=== PATIENT | male | born 1955 | race Hispanic/Latino ===

== ENCOUNTER 2017-09-17 07:35 | Day surgery (SDC) | payer OTHER ==
[2017-09-17] MEDS ORDERED: ECOTRIN PO ONE (07:51)
[2017-09-17] MEDS ORDERED: NACL 0.9% 500 ML 500 ML IV SCH (08:00)
[2017-09-17 08:19] LABS: Basophils % (Auto) 0.5 % (0.0-1.8); Eosinophils # (Auto) 0.5 K/mm3 (0.0-0.4); Eosinophils % (Auto) 7.5 % (0.0-4.3); Hematocrit 43.5 % (35.5-45.6); Hemoglobin 14.9 gm/dl (11.8-15.2); Lymphocytes # (Auto) 1.8 K/mm3 (1.2-5.4); Lymphocytes % (Auto) 24.8 % (13.4-35.0); Mean Corpuscular HGB Conc 34 % (32-34); Mean Corpuscular Hemoglobin 31 pg (28-32); Mean Corpuscular Volume 91 fl (84-94); Monocytes # (Auto) 0.5 K/mm3 (0.0-0.8); Monocytes % (Auto) 7.6 % (0.0-7.3); Platelet Count 299 K/mm3 (140-440); Red Blood Count 4.81 M/mm3 (3.65-5.03); Red Cell Distribution Width 13.8 % (13.2-15.2)
[2017-09-17 08:29] LABS: INR 0.87 (0.87-1.13)
[2017-09-17 09:07] LABS: BUN/Creatinine Ratio 22; Blood Urea Nitrogen 20 mg/dL (9-20); Calcium 9.1 mg/dL (8.4-10.2); Hemolysis Index 13
[2017-09-17] MEDS ORDERED: HEPARIN/NS 5000 UNIT/500ML(CATH LAB) 0 ML IR ONE (09:42)
[2017-09-17] MEDS ORDERED: HEPARIN 10,000 UNITS/10 ML ONE (09:42)
[2017-09-17] MEDS ORDERED: XYLOCAINE 2% INFILTRATI ONE (09:42)
[2017-09-17] MEDS ORDERED: NITROGLYCERIN SYRINGE 3 ML ONE (11:13)
[2017-09-17] MEDS ORDERED: HEPARIN/NS 5000 UNIT/500ML(CATH LAB) 1,000 ML IR ONE (11:13)
[2017-09-17] MEDS ORDERED: SUBLIMAZE ONE (11:14)
[2017-09-17] MEDS: VERSED ONE ×2 (11:29→11:34)
[2017-09-17] MEDS: HEPARIN 10,000 UNITS/10 ML ONE ×3 (11:32→11:36)
[2017-09-17] MEDS: XYLOCAINE 2% INFILTRATI ONE ×2 (11:32→11:33)
[2017-09-17] MEDS: CALAN ONE ×3 (11:32→11:36)
--- NOTE | 2017-09-17 14:17 | Discharge Summary ---
Short Stay Discharge Plan Activity: advance as tolerated Weight Bearing Status: Full Weight Bearing Diet: low fat, low cholesterol, low salt Follow up with: ALYSSA LORD MD [Primary Care Provider] - 7 Days JARETT ROBLERO MD [Staff Physician] - 7 Days Forms: CardCath PCI D/C Instructions
[2017-09-17 14:23] VITALS: BP 107/74
--- NOTE | 2017-09-18 13:12 | Cardiac Catherization Report ---
HISTORY: The patient is a 62-year-old male with a history of coronary artery disease who has had some chest discomfort recently and underwent a stress thallium study that was abnormal. PROCEDURE: Left heart catheterization, ventriculography, and coronary angiography via the right radial artery using 5-Bengali Sara catheters and a pigtail catheter. COMPLICATIONS: None. ESTIMATED BLOOD LOSS: 10-20 mL. SEDATION: Intravenous Versed and fentanyl. TISSUE SAMPLES: None. PREPROCEDURE DIAGNOSIS: Angina. POSTPROCEDURE DIAGNOSIS: Angina. HEMODYNAMICS: Central aortic pressure 122/85, left ventricular pressure 123/13 with an end-diastolic pressure of 27. The sedation initiation time was 11:29 a.m. The procedure started at 11:33 a.m. The procedure ended at 11:52 a.m. Total sedation time 23 minutes. ANGIOGRAPHIC RESULTS: 1. Left ventricle: Left ventriculogram reveals left ventricular enlargement with dilatation and hypokinesia of the inferior and inferobasal segments. An estimation of ejection fraction is 40-45%. 2. Right coronary artery: This is a nondominant vessel that is diffusely irregular. There are no severe lesions. 3. Left coronary artery: This vessel is diffusely irregular. The left main is free of remarkable disease. The circumflex contains a 50% lesion in the PDA branch, in its proximal portion. The ramus intermedius branch has an ostial 40% stenosis. The LAD contains a mid 40% stenosis and an early distal 40% stenosis. There is a moderate calcification of the vessel. There is a stent in the circumflex branch that is fully patent. FINAL IMPRESSION: Diffuse mild coronary artery disease with multiple 40-50% lesions. Mild left ventricular dysfunction with evidence of a previous infarction involving the inferior and inferobasal segment. PLAN: Aggressive medical therapy, CAD risk factor modification. Office followup within 7 days. JOB# [id number] CJ/HONORIO
== END 2017-09-17 15:06 | disposition home or self-care (01) ==
LOC: CATHLABREC 07:35
PROVIDERS: ATTEND Internal Medicine Cardiovascular Disease
DX: I25.10 Atherosclerotic heart disease of native coronary artery without angina pectoris (principal); I10 Essential (primary) hypertension; E78.5 Hyperlipidemia, unspecified; I25.2 Old myocardial infarction; E66.9 Obesity, unspecified; Z79.82 Long term (current) use of aspirin; Z68.42 Body mass index [BMI] 45.0-49.9, adult
CPT/HCPCS: 36415; 80048; 85025; 85610; 85730; 93005; 93010; 93458; 99156; 99157; C1894; J1644; J2250; J3010; J7040; Q9967